=== PATIENT | male | born 1965 | race Caucasian/White ===

== ENCOUNTER 2023-08-19 04:34 | Day surgery (SDC) | payer OTHER ==
[2023-08-18 10:25] VITALS: BMI 32.9
[2023-08-19 11:35] VITALS: TEMP 98.7
[2023-08-19 11:55] VITALS: RESP 18
[2023-08-19 11:58] VITALS: BP 123/87; PULSE 68
== END 2023-08-19 12:05 | disposition home or self-care (01) ==
LOC: JASU-ENDO 04:34
PROVIDERS: ATTEND Internal Medicine Gastroenterology
PROC: 0DBL8ZX Excision of Transverse Colon, Via Natural or Artificial Opening Endoscopic, Diagnostic (ICD-10-PCS; 2023-08-19)
PROC: 0DBH8ZX Excision of Cecum, Via Natural or Artificial Opening Endoscopic, Diagnostic (ICD-10-PCS; principal; 2023-08-19 11:30)
DX: Z12.11 Encounter for screening for malignant neoplasm of colon (principal); Z86.010 Personal history of colon polyps; D12.0 Benign neoplasm of cecum; D12.3 Benign neoplasm of transverse colon
CPT/HCPCS: 88305-TC